=== PATIENT | female | born 1955 | race Caucasian/White ===

== ENCOUNTER → 2018-02-06 | Outpatient (CLI) | payer OTHER ==
[~2018-02-06] MED LIST: ALBUAER2 INH; IBUP-103 PO; LEVO25TA5 PO
[2018-02-06 12:25] LABS: BASO % 0.4 %; BASO ABS # 0.04 K/uL (0-0.2); EOS % 0.8 %; EOS ABS # 0.08 K/uL (0-0.5); HEMATOCRIT 41.9 % (37-47); HEMOGLOBIN 14.2 g/dL (12.0-16.0); IG# 0.02 K/uL (0.00-0.02); LYMPH % 34.9 %; LYMPH ABS # 3.37 K/uL (1.2-3.4); MEAN CELL VOLUME 94.8 fL (80-100); MEAN CORPUSCULAR HEMOGLOBIN 32.1 pg (25-34); MEAN CORPUSCULAR HGB CONC 33.9 g/dl (32-36); MEAN PLATELET VOLUME 10.5 fL (7.4-10.4); MONO % 7.9 %; MONO ABS # 0.76 K/uL (0.11-0.59); NEUT % 55.8 %; PLATELET COUNT 295 K/uL (130-400); RED CELL DISTRIBUTION WIDTH CV 13.5 % (11.5-14.5); WHITE BLOOD COUNT 9.67 K/uL (4.8-10.8)
[2018-02-06 12:38] LABS: PTT PATIENT 25.4 SECONDS (21.0-31.0)
[2018-02-06 13:08] LABS: BLOOD UREA NITROGEN 16 mg/dl (7-18); CALCIUM 8.9 mg/dl (8.5-10.1); CARBON DIOXIDE 28 mmol/L (21-32); CHOLESTEROL 307 mg/dl (0-200); CREATININE 0.78 mg/dl (0.60-1.20); GLUCOSE 91 mg/dl (70-99); LDL CHOLESTEROL CALCULATED 196 mg/dl; POTASSIUM 3.7 mmol/L (3.5-5.1); SODIUM 138 mmol/L (136-145)
== END | disposition home or self-care (01) ==
LOC: C.LAB1850 11:48
PROVIDERS: ATTEND Physician Assistant Medical
DX: I25.10 Atherosclerotic heart disease of native coronary artery without angina pectoris (principal)